=== PATIENT | female | born 1995 | race Caucasian/White ===

== ENCOUNTER 2017-01-15 05:33 | Outpatient (CLI) | payer OTHER ==
[~2017-01-15] VITALS: Ht 167.6 cm; Wt 56.7 kg
--- NOTE | 2017-01-15 12:26 | HISTORY AND PHYSICAL ---
DATE OF SERVICE: 01/15/2017 CHIEF COMPLAINT: To have left foot surgery. She has bunion to be performed by by Dr. Sanchez. The patient states it has been hurting for a long time and has a big bunion there. ALLERGIES: SULFA. MEDICATIONS: Now on control pill. PAST SURGICAL HISTORY: Xenia teeth. FAMILY HISTORY: Denies asthma, TB, diabetes, heart disease, lung disease, cancer. REVIEW OF SYSTEMS: HEAD: Denies headache, dizziness, fainting. EYES, EARS, NOSE AND THROAT: Denies diplopia, tinnitus and sore throat. RESPIRATORY: Denies asthma, TB, coughing, congestion or wheezing. HEART: No history of heart problems, heart murmurs or chest pain. GASTROINTESTINAL: Appetite good. Denies blood in stools, diarrhea, constipation, nausea or vomiting. GENITOURINARY: Denies blood, pain and frequency. MENSTRUAL HISTORY: Last menstrual period 2 weeks ago. PHYSICAL EXAMINATION: GENERAL: The patient is a white female, well-nourished and well-developed, in no acute respiratory distress at rest. VITAL SIGNS: Weight 126. Blood pressure 100/80 and pulse 60. HEENT: Ears: Not inflamed. Eyes: No conjunctivitis. Throat: Not inflamed. NECK: Thyroid not enlarged. No abnormal cervical lymphadenopathy noted. HEART: Regular rate and rhythm. LUNGS: Clear to auscultation. ABDOMEN: Soft. Liver and spleen nonpalpable. EXTREMITIES: No pretibial edema. Bunion noted. Job ID: [id number] DocumentID: [id number] Dictated Date: 01/11/2017 12:12:27 Sales Account Coordinator Date: 01/11/2017 15:04:57 Dictated By: YANIRA WILCOX DO
[2017-01-15] MEDS ORDERED: NORG1TAB16 PO (12:51)
== END 2017-01-15 13:00 ==
LOC: PREOP 05:33
PROVIDERS: ATTEND Podiatrist Foot & Ankle Surgery
DX: Z01.818 Encounter for other preprocedural examination (principal); M20.12 Hallux valgus (acquired), left foot

== ENCOUNTER 2017-01-19 06:18 | Day surgery (SDC) | payer OTHER ==
[~2017-01-19] VITALS: Ht 167.6 cm; Wt 56.7 kg
[~2017-01-19 06:18] MED LIST: NORG1TAB16 PO
[2017-01-19] MEDS ORDERED: proPOfol 200 MG/20 ML (DIPRIVAN) VIAL IV ONE (06:52)
[2017-01-19] MEDS ORDERED: SEVOFLURANE (ULTANE) 15 ML INHAL SOLN ONE ×2 (06:52→09:11)
[2017-01-19] MEDS ORDERED: LACTATED RINGERS 1,000 ML IV ONE ×2 (06:52→09:11)
[2017-01-19] MEDS ORDERED: LIDOCAINE PF 2% 10 ML (XYLOCAINE) AMP ONE (06:52)
[2017-01-19] MEDS ORDERED: fentaNYL INJECTION 100 MCG/2 ML AMP ONE (06:53)
[2017-01-19] MEDS ORDERED: MIDAZOLAM 2 MG/2 ML (VERSED) VIAL ONE (06:53)
[2017-01-19] MEDS ORDERED: ceFAZolin 1 GM/NS 50 ML IVPB IV ONE ×2 (07:00)
[2017-01-19] MEDS: LACTATED RINGERS 1,000 ML IV PRN ×2 (07:10→08:38)
[2017-01-19 07:13] VITALS: BP 108/74
[2017-01-19] MEDS ORDERED: BUPIVACAINE 0.5% 30 ML (SENSORCAINE) VIAL ONE (07:27)
[2017-01-19] MEDS ORDERED: LIDOCAINE 1% INJ 20 ML (XYLOCAINE) VIAL ONE (07:27)
--- NOTE | 2017-01-19 07:46 | Progress Note-Pre Operative ---
Pre-Operative Progress Note H&P Reviewed The H&P was reviewed, patient examined and no changes noted. Date H&P Reviewed: January 19, 2017 Time H&P Reviewed: 07:45 Pre-Operative Diagnosis: Hallux Valgus left HILARY WILKINSON DPM January 19, 2017 7:45 am
[2017-01-19] MEDS ORDERED: MEPERIDINE (DEMEROL) INJ 50 MG/ML ONE (09:10)
[2017-01-19] MEDS ORDERED: ONDANSETRON 4 MG/2 ML (SDV) Z0FRAN ONE (09:11)
[2017-01-19] MEDS ORDERED: DEXAMETHASONE PF 10 MG/ML (DECADRON) VIAL ONE (09:11)
[2017-01-19] MEDS ORDERED: LACTATED RINGERS 1,000 ML IV SCH (09:17)
--- NOTE | 2017-01-19 09:17 | Progress Note-Post Operative ---
Post-Operative Progess Note Surgeon (s)/Metaphysician (s) Surgeon HILARY WILKINSON DPM Metaphysician: none Pre-Operative Diagnosis Hallux Valgus left Post-Operative Diagnosis same Post-Op Procedure Note Date of Procedure: January 19, 2017 Name of Procedure Performed: Modified Hay-Jossue bunionectomy left Description of the Procedure: Reduction of bunion, left Findings of the Procedure Hallux valgus deformity, left Anesthesia Type general Estimated blood loss (mL): minimal Specimen(s) collected/removed none HILARY WILKINSON DPM January 19, 2017 9:17 am
[2017-01-19] MEDS: MEPERIDINE (DEMEROL) INJ 50 MG/ML IVP PRN ×2 (09:20→09:25)
[2017-01-19] MEDS ORDERED: CEPH500C PO (09:22)
[2017-01-19] MEDS ORDERED: HYDR-3812 PO (09:22)
[2017-01-19] MEDS ORDERED: HYDROcodone/APAP 5 MG/325 MG (LORTAB) TAB PO PRN (09:30)
[2017-01-19] MEDS ORDERED: morphine INJ 10 MG/ML 1ML (SYR OR VIAL) IVP PRN (09:30)
[2017-01-19] MEDS ORDERED: ONDANSETRON 4 MG/2 ML (SDV) Z0FRAN IVP PRN ×2 (09:30)
[2017-01-19] MEDS ORDERED: morphine INJ 10 MG/ML 1ML (SYR OR VIAL) ONE (09:39)
[2017-01-19 10:05] VITALS: BP 116/78
[2017-01-19 10:35] VITALS: BP 115/81
[2017-01-19 11:05] VITALS: BP 114/74
--- NOTE | 2017-01-19 11:05 | Physical Therapy Ortho Eval ---
PT Orthopedic Evaluation Type of Surgery left bunionectomy Prior Level of Function Current Living Status: Significant Other Locomotion (Upon Admit): Independent Established Durable Medical Eq: Crutches Subjective Subjective Patient report she has established crutches Entry Into Home: Stairs With Railing Steps Into Home: 3 Steps Accessories: Railing Present Objective Objective NWB left foot Motor Control Motor Control: Motor Control WNL ROM ROM: WFL, except focal deficit Strength Strength: WFL Transfer Transfers (B, C, W/C) (FIM): 7 Gait Gait Assistive Device: Crutches Weight Bearing Restriction: Non Weight Bearing Location Restriction: LT FOOT Gait (FIM): 5 Distance (FIM): 3=150 ft Gait Level of Assist: 5 Summary/Comments able to comply with NWB left foot Treatment Rendered Treatment: Gait Train, Step Train Assessment/Goals Goal Time Frame: 1 Visit Safe Ambulation: Yes Plan Treatment Plan: Discharge PT/Family Agrees to Plan: Yes Time Time In: 1025 Time Out: 1045 Total Billed Treatment Time: 20 Billed Treatment Time 1 visit EVLowC 20 min No DEBO COLBY PT January 19, 2017 11:05
--- NOTE | 2017-01-19 14:48 | Diagnostic Imaging Report ---
EXAMINATION: Left foot at 09:31 a.m. INDICATION: Postop left hallux valgus surgery. FINDINGS: AP and lateral views were obtained from the OR. There are no prior studies available for comparison. There are postsurgical changes involving the first ray. Specifically, there has been an osteotomy of the neck of the first metatarsal and there is an orthopedic fixation wire traversing the osteotomy site. There is also a surgical wire along the medial aspect of the base of the proximal phalanx of the great toe. There is soft tissue edema and gas in the soft tissues about the first metatarsophalangeal joint as well. No other fracture or acute bony abnormality is noted. IMPRESSION: There are postoperative changes consistent with a recent hallux valgus repair of the first ray. There is no acute abnormality noted otherwise. Dictated by: Dictated on workstation # [id number]
--- NOTE | 2017-01-20 01:33 | OPERATIVE REPORT ---
DATE OF SERVICE: 01/19/2017 SURGEON: Pinky Sanchez DPM PREOPERATIVE DIAGNOSIS: Hallux abductovalgus metatarsus primus varus, left foot. POSTOPERATIVE DIAGNOSIS: Hallux abductovalgus metatarsus primus varus, left foot. PROCEDURE PERFORMED: Modified Hay Jossue bunionectomy left foot. WOUND CLASS: Clean. ANESTHESIA: General. HEMOSTASIS: Pneumatic thigh tourniquet at 250 mmHg. INDICATION: This 21-year-old female presents with a painful bunion, left foot, conservative therapy is met with unsatisfactory results and the patient is agreeable to surgical intervention after risks and complications were discussed at length. No guarantees were extended to the patient and she is willing to proceed. PROCEDURE: The patient was brought back to the operating table, placed in secure supine position. Appropriate timeout was performed. The left lower extremity had a thigh tourniquet placed over several layers of padding. General anesthetic was then induced. The left foot was then prepped and draped in a normal sterile manner. The left foot was then elevated and allowed to exsanguinate after which the tourniquet was inflated to 250 mmHg. Attention was then directed to the dorsal aspect of the left first metatarsal phalangeal joint where a 5 cm longitudinal linear incision was created. The incision was deepened in the same plane with great care to identify and retract all vital neurovascular structures. Only necessary blood vessels were cauterized as encountered. The incision was deepened down to the capsular tissue where a longitudinal capsulotomy was performed. This exposed the hypertrophic medial eminence to the first metatarsal head, which was resected utilizing a power sagittal saw. Next, a blunt dissection was carried out into the first intermetatarsal space where a lateral release was performed. The conjoined tendon of the adductor hallucis was released as well as the capsulorrhaphy. The fibular sesamoidal ligament was also released. The hallux was then forcibly adducted releasing any additional fibers holding it in its abnormal position. Attention was then redirected to the medial aspect of the first metatarsal head where a Chevron-type osteotomy was performed with the power sagittal saw. The capital fragment was then translocated laterally and was fixated in its corrected position with a 0.062 threaded K-wire driven from proximal to plantar distal across the osteotomy. Excellent bony apposition and fixation was noted at this time. The excess medial eminence to the first metatarsal was reduced with a power sagittal saw as well as the dorsal eminence to the first metatarsal head. These areas were further contoured and smoothed with a power malissa. The wound was flushed with copious amounts of normal saline. Attention was then directed to the diaphysis of the proximal phalanx where an Jossue-type osteotomy was performed. Subperiosteal dissection was carried out after which a power sagittal saw was utilized to create a wedge of bone, which was resected from the proximal phalanx with the base medial and lateral cortices held intact. Once the wedge of bone was resected, the phalanx came into more appropriate alignment. Two pilot can router holes were created to the dorsal medial aspect of the osteotomy and a 28 gauge monofilament wires passed through the pilot can router holes securing the osteotomy in a closed position. Excellent bony apposition and fixation was appreciated at this time. The wound was flushed with copious amounts of normal saline. Closure was then performed in layers. Deep closure was performed with 3-0 Vicryl, superficial closure with 4-0 Vicryl, skin closure with 4-0 Prolene in a horizontal mattress type stitch. Postoperative injection consisted of 15 mL of 0.5% Marcaine injected in local infusion to the surgical site. Postoperative dressing consisted of Betadine soaked adaptic, sterile 4 x 4s, sterile Kerlix, all secured with a Coban wrap. The patient tolerated the anesthesia and procedure well and was transported from the operating room to the recovery area with vital signs stable and vascular status intact to all digits of the left foot. The patient was given a prescription for Keflex and Vicodin. She is to follow up in my office in 10-days period of time or sooner if necessary. She is to be nonweightbearing on the left lower extremity with crutches. Job ID: [id number] DocumentID: [id number] Dictated Date: 01/19/2017 09:26:50 Medical Transcription Radiology Date: 01/19/2017 21:39:45 Dictated By: NATO BARLOW
== END 2017-01-19 11:15 | disposition home or self-care (01) ==
LOC: SDC 06:18
PROVIDERS: ATTEND Podiatrist Foot & Ankle Surgery
DX: M20.12 Hallux valgus (acquired), left foot (principal)
CPT/HCPCS: 73620; 84703; 87081

== ENCOUNTER → 2023-05-02 | Outpatient (CLI) | payer OTHER ==
[~2023-05-02] MED LIST changes: +ACHD5005 PO; +CEPH500C PO
--- NOTE | 2023-05-02 12:19 | Diagnostic Imaging Report ---
PROCEDURE: Pelvic comp/transvaginal sonogram. TECHNIQUE: Complete transabdominal and transvaginal pelvic ultrasound was performed. In addition, limited pelvic Doppler was performed. INDICATION: Infertility workup. Patient is trying to conceive. Uterus is anteverted measuring 8.0 x 4.3 x 5.0 cm. Endometrium is 4 mm in thickness. No myometrial mass is detected. Right ovary measures 3.0 x 1.7 x 1.9 cm and left ovary measures 2.7 x 1.6 x 2.0 cm. Ovaries do contain multiple follicles. Largest follicle on the right is 13 mm. Largest follicle on the left is 13 mm. There is blood flow to both ovaries. No free fluid is identified. IMPRESSION: Unremarkable transabdominal and transvaginal pelvic ultrasound with limited pelvic Doppler. Dictated by: Dictated on workstation # [id number]
== END ==
LOC: RAD 10:14
PROVIDERS: ATTEND Nurse Practitioner Women's Health
DX: Z01.419 Encounter for gynecological examination (general) (routine) without abnormal findings (principal)
CPT/HCPCS: 76830; 76856

== ENCOUNTER 2023-05-10 06:06 | Outpatient (CLI) | payer OTHER ==
[~2023-05-10] VITALS: Ht 167.6 cm; Wt 64.0 kg
[2023-05-10] MEDS ORDERED: PREN-102 PO (14:04)
[2023-05-10] MEDS ORDERED: ESCI10TA PO (14:04)
== END 2023-05-10 14:17 | disposition home or self-care (01) ==
LOC: PREOP 06:06
PROVIDERS: ATTEND Surgery
DX: Z01.818 Encounter for other preprocedural examination (principal)

== ENCOUNTER 2023-05-17 11:30 | Day surgery (SDC) | payer OTHER ==
[~2023-05-17] VITALS: Ht 167.6 cm; Wt 64.0 kg
[2023-05-17] VITALS (10 sets, daily range): BP systolic 75–119; BP diastolic 51–83
[~2023-05-17 11:30] MED LIST changes: +ESCI10TA PO; +PREN-102 PO
--- NOTE | 2023-05-17 12:13 | Progress Note-Pre Operative ---
Pre-Operative Progress Note Date H&P Reviewed: May 17, 2023 Time H&P Reviewed: 12:10 History & Physical: H&P Reviewed, Patient Examed, No changes noted Pre-Operative Diagnosis: Rectal pain, blood per rectum, anal fistula KALINA ORTIZ APRN May 17, 2023 12:13
[2023-05-17] MEDS ORDERED: HYDR-3817 PO (12:14)
--- NOTE | 2023-05-17 12:14 | Discharge Inst-Surgical ---
D/C Lap Instructions-KIDO Reconcile Patient Problems Problems Reviewed?: Yes New, Converted, or Re-Newed RX: RX on Chart Follow Up Appt in 2 weeks Activity as tolerated No driving for 24 hours No driving while on pain medications Incentive Spirometry use every 2 hours while awake Regular Diet Symptoms to Report: Fever over 101 degree F, Nausea/Vomiting Infection Signs and Symptoms to report: Increased redness, Foul odor of wound, Increased drainage Bathing instructions: May shower Operative Area Clean/Dry; Keep incision clean/dry If any problems/questions: Contact your physician or go to Emergency Room KALINA ORTIZ APRN May 17, 2023 12:14
[2023-05-17] MEDS ORDERED: morphine INJ 10 MG/ML 1ML (SYR OR VIAL) IVP PRN (12:15)
[2023-05-17] MEDS ORDERED: HYDROcodone/ACETAMINOPHEN 5 MG/325 MG TABLET PO ONE (12:15)
[2023-05-17] MEDS ORDERED: ACETAMINOPHEN 325 MG TABLET PO PRN (12:15)
[2023-05-17] MEDS ORDERED: ONDANSETRON INJECTION 4 MG/2 ML (SDV) IVP PRN ×2 (12:15→14:15)
[2023-05-17] MEDS ORDERED: NS (IVPB) 50 ML 50 ML ONE (12:18)
[2023-05-17] MEDS ORDERED: ceFAZolin INJECTION 1,000 MG ONE (12:18)
[2023-05-17] MEDS ORDERED: LIDOCAINE/EPI 1%-1:200,000 (XYLOCAINE) 30 ML VIAL ONE (12:23)
[2023-05-17] MEDS: LACTATED RINGERS 1,000 ML 1,000 ML IV PRN ×2 (12:26→13:47)
[2023-05-17] MEDS ORDERED: ceFAZolin INJECTION 1,000 MG in NS (IVPB) 50 ML 50 ML IV ONE (12:30)
[2023-05-17] MEDS ORDERED: MIDAZOLAM INJ 2 MG/2 ML VIAL ONE (12:52)
[2023-05-17] MEDS ORDERED: fentaNYL INJECTION 100 MCG/2 ML VIAL ONE (12:52)
[2023-05-17] MEDS ORDERED: dexAMETHasone INJ 10 MG/ML 1 ML VIAL ONE (13:47)
[2023-05-17] MEDS ORDERED: LIDOCAINE PF 2% 5 ML VIAL ONE (13:47)
[2023-05-17] MEDS ORDERED: proPOfol INJECTION 200 MG/20 ML VIAL IV ONE (13:47)
[2023-05-17] MEDS ORDERED: ONDANSETRON INJECTION 4 MG/2 ML (SDV) ONE (13:47)
[2023-05-17] MEDS ORDERED: LIDOCAINE/EPI 1%-1:200,000 (XYLOCAINE) 30 ML VIAL IJ ONE (13:49)
[2023-05-17] MEDS ORDERED: SEVOFLURANE (ULTANE) 15 ML INHAL SOLN ONE (14:01)
--- NOTE | 2023-05-17 14:03 | Progress Note-Post Operative ---
Post-Operative Progess Note Surgeon (s)/Pit Steward (s) Surgeon GERARD SCHREIBER MD Pit Steward: nguyen hills APRN Pre-Operative Diagnosis Rectal pain, blood per rectum, anal fistula Post-Operative Diagnosis superficial anal fistula (6 o'clock). very mild sigmoid diverticulosis. Procedure & Operative Findings Date of Procedure 05/17/23 Procedure Performed/Findings anal exam under anesthesia, pudendal nerve block, fistulotomy, colonoscopy. Anesthesia Type general LMA Estimated Blood Loss Estimated blood loss (mL): minimal Specimens/Packing Specimens Removed none GERARD SCHREIBER MD May 17, 2023 14:03
[2023-05-17] MEDS ORDERED: morphine INJ 10 MG/ML 1ML (SYR OR VIAL) IVP ONE (14:15)
[2023-05-17] MEDS ORDERED: fentaNYL INJECTION 100 MCG/2 ML VIAL IVP ONE (14:15)
--- NOTE | 2023-05-17 14:16 | Anesthesia-General Post-Op ---
General Patient Condition Mental Status/LOC: Same as Preop Cardiovascular: Satisfactory Nausea/Vomiting: Absent Respiratory: Satisfactory Pain: Controlled Complications: Absent Post Op Complications Complications None Follow Up Care/Instructions Patient Instructions None needed. Anesthesia/Patient Condition Patient Condition Patient is doing well, no complaints, stable vital signs, no apparent adverse anesthesia problems. No complications reported per nursing. THAO SILVA CRNA May 17, 2023 14:16
--- NOTE | 2023-05-17 21:11 | OPERATIVE REPORT ---
DATE OF SERVICE: 05/17/2023 ATTENDING PRIMARY CARE PHYSICIAN: Dr. Guillermo Mukherjee. PREOPERATIVE DIAGNOSES: Perianal pain and bloody drainage. POSTOPERATIVE DIAGNOSIS: Superficial perianal fistula at approximately the 6 o'clock position with the patient in lithotomy. Solitary sigmoid diverticula. PROCEDURE: Anal exam under anesthesia, pudendal nerve block, superficial fistulotomy, colonoscopy. SURGEON: Gerard Hall MD DIRECTOR OF CORPORATE REAL ESTATE: Jun Jefferson APRN ANESTHESIA: General laryngeal mask airway, pudendal nerve block and local. ESTIMATED BLOOD LOSS: Minimal. FINDINGS: Superficial perianal fistula at approximately the 6 o'clock position with the patient in lithotomy. Solitary sigmoid diverticula. DISPOSITION: The patient tolerated the procedure well. INDICATIONS: The patient is a 27-year-old female who has had a 1-year history of recurrent episodes of perianal pain and this would usually be followed by bloody drainage. She does not report any major issues with constipation and does not report any crampy abdominal pain. She also does not report any intermittent episodes of diarrhea as well as no mucousy stools associated with her symptoms. DESCRIPTION OF PROCEDURE: The patient was brought to the operating room, laid supine on the table. After adequate IV pain and sedative medications and general laryngeal mask airway intubation, the patient was placed in lithotomy position and the perineum prepped and draped in standard surgical fashion. We then proceeded with a pudendal nerve block approximately 1 cm inferior to the ischial tuberosity using 0.5% Marcaine with epinephrine. Once the anal sphincters relaxed, a self-retaining speculum was placed. We then proceeded with circumferential examination of the anal canal. There was an external opening at the 6 o'clock position of the anus and this was probed and did open into the area just above the dentate line. This was superficial to the anal sphincters. Over the lacrimal probe, we then opened up the fistula using electrocautery under direct visualization. Good hemostasis was observed. The endoscope was then placed into the anus and the rectum gently insufflated. The endoscope was then advanced through the valves of Crocker of the rectum with no polyps or any neoplasms identified. Through the sigmoid colon, a solitary sigmoid diverticula identified. The endoscope was then advanced through the remainder of the descending, transverse and ascending colon to the cecum, which were normal. There were no polyps or any neoplasms identified as well as no mucosal inflammatory changes to indicate any inflammatory bowel disease. The endoscope was then slowly withdrawn while taking a second look and suctioning of residual air with no additional findings. The endoscope was slowly withdrawn while taking a second look and suctioning of residual air with no additional findings. The patient tolerated the procedure well. She will be instructed to remove the semi-absorbable packing with her bowel movement. We will also recommend that she make her stools are soft, possible with stool softeners, fiber supplementation as well as laxatives to promote 1 soft bowel movement on a daily basis. We will also recommend sitz baths ideally 4 times a day, however, especially after every bowel movement. There will be drainage and she will be instructed to place gauze or pads as needed. The colonoscopy for all practical purposes was normal and she is asymptomatic, she does not need another colonoscopy until age 44. Job ID: [id number] DocumentID: [id number] Dictated Date: 05/17/2023 14:20:52 Gallery Host Date: 05/17/2023 21:08:00 Dictated By: GERARD HALL MD
== END 2023-05-17 16:00 ==
LOC: SDC 11:30
PROVIDERS: ATTEND Surgery
DX: K60.3 Anal fistula (principal); K62.89 Other specified diseases of anus and rectum; K57.30 Diverticulosis of large intestine without perforation or abscess without bleeding
CPT/HCPCS: 84703; 87081